=== PATIENT | female | born 1990 | race Hispanic/Latino ===

== ENCOUNTER 2017-03-17 05:18 | Emergency (ER) | payer BC ==
[2017-03-17 06:02] LABS: BASOPHILS % (AUTO) 0.8 % (0.0-5.0); EOSINOPHILS % (AUTO) 2.1 % (0.0-8.0); HEMATOCRIT 39.9 % (36-48); LYMPHOCYTES % (AUTO) 27.3 % (21.0-51.0); MEAN CORPUSCULAR HEMOGLOBIN 31.1 pg (27.0-33.0); MEAN CORPUSCULAR HGB CONC 34.8 g/dL (32.0-36.0); MEAN CORPUSCULAR VOLUME 89.3 fL (79-99); MONOCYTES % (AUTO) 5.4 % (3.0-13.0); NEUTROPHILS % (AUTO) 64.4 % (40.0-77.0); PLATELET COUNT (AUTO) 281 K/uL (130-400); RED BLOOD CELL COUNT(AUTO) 4.46 MIL/uL (4.00-5.50); RED CELL DISTRIBUTION WIDTH 13.5 % (11.0-15.5); WHITE BLOOD COUNT (AUTO) 12.9 K/uL (4.8-10.8)
[2017-03-17 06:10] LABS: CREATININE 0.7 mg/dL (0.5-1.5); POTASSIUM 3.9 mmol/L (3.5-5.1)
[2017-03-17 06:23] LABS: APPEARANCE,URINE Clear (CLEAR); BILIRUBIN,URINE Negative (NEGATIVE); COLOR,URINE Yellow (YELLOW); GLUCOSE, URINE (UA) Negative (NEGATIVE); KETONES,URINE Negative (NEGATIVE); LEUKOCYTE ESTERASE ,URINE Trace (NEGATIVE); NITRATE,URINE Negative (NEGATIVE); OCCULT BLOOD,URINE Large (NEGATIVE); PH,URINE 5.5 (5.0-8.0); PROTEIN,URINE Negative (NEGATIVE); UROBILINOGEN,URINE 0.2 mg/dL (0.2-1.0)
[2017-03-17 06:38] LABS: ALBUMIN 3.5 g/dL (3.5-5.0); BILIRUBIN,TOTAL 0.3 mg/dL (0.2-1.0); TOTAL PROTEIN, SERUM 6.9 g/dL (6.0-8.3)
[2017-03-17 07:19] LABS: BACTERIA,URINE Rare /HPF (None Seen); RBC,URINE 0-1 /HPF (0-1); WBC,URINE 0-1 /HPF (0-1)
== END 2017-03-17 08:05 | disposition home or self-care (01) ==
LOC: EDH 05:18
DX: O20.0 Threatened abortion (principal); Z90.49 Acquired absence of other specified parts of digestive tract; Z3A.00 Weeks of gestation of pregnancy not specified
CPT/HCPCS: 36415; 76817; 80053; 81001; 83033; 84702; 85025; 86900; 86901; 96372; 99285; J2791

== ENCOUNTER 2017-08-30 12:10 | Observation (INO) | payer BC ==
[~2017-08-30] VITALS: Ht 157.5 cm; Wt 112.9 kg
[2017-08-30] MEDS ORDERED: LACTATED RINGERS 1000ML 1,000 ML IV PRN (12:33)
[2017-08-30] MEDS ORDERED: LACTATED RINGERS 1000ML 1,000 ML IV SCH (13:30)
[2017-08-30] MEDS ORDERED: TERBUTALINE SULFATE VIAL 1MG/ML SQ SCH ×2 (13:30)
[2017-08-30 13:50] LABS: APPEARANCE,URINE Cloudy (CLEAR); BILIRUBIN,URINE Negative (NEGATIVE); COLOR,URINE Yellow (YELLOW); GLUCOSE, URINE (UA) Negative (NEGATIVE); KETONES,URINE 15 mg/dL (NEGATIVE); LEUKOCYTE ESTERASE ,URINE Large (NEGATIVE); NITRATE,URINE Negative (NEGATIVE); OCCULT BLOOD,URINE Negative (NEGATIVE); PH,URINE 5.5 (5.0-8.0); PROTEIN,URINE Negative (NEGATIVE); UROBILINOGEN,URINE 0.2 mg/dL (0.2-1.0)
[2017-08-30 14:17] LABS: RBC,URINE None Seen /HPF (0-1)
[2017-08-30 14:18] LABS: BACTERIA,URINE Moderate /HPF (None Seen)
== END 2017-08-30 15:00 | disposition home or self-care (01) ==
LOC: EDH 12:10 → LDH 12:11
PROVIDERS: ADMIT Obstetrics & Gynecology; ATTEND Obstetrics & Gynecology
DX: O60.03 Preterm labor without delivery, third trimester (principal); Z3A.30 30 weeks gestation of pregnancy
CPT/HCPCS: 81001; 96372; 99285; G0378 ×3; J3105; J7120; 96360; 96361

== ENCOUNTER 2023-04-15 10:42 | Emergency (ER) | payer BC, OTHER ==
[~2023-04-15] VITALS: Ht 157.5 cm; Wt 96.2 kg
[2023-04-15 11:21] LABS: HEMATOCRIT 37.1 % (36-48); MEAN CORPUSCULAR HEMOGLOBIN 30.6 pg (27.0-33.0); MEAN CORPUSCULAR HGB CONC 34.8 g/dL (32.0-36.0); MEAN CORPUSCULAR VOLUME 88.1 fL (79-99); RED BLOOD CELL COUNT(AUTO) 4.21 MIL/uL (4.00-5.50); RED CELL DISTRIBUTION WIDTH 13.2 % (11.0-15.5); WHITE BLOOD COUNT (AUTO) 8.9 K/uL (4.8-10.8)
[2023-04-15 11:33] LABS: CREATININE 0.6 mg/dL (0.5-1.5); POTASSIUM 3.9 mmol/L (3.5-5.1); PROTHROMBIN TIME 11.6 SEC (9.6-11.6)
[2023-04-15 11:34] LABS: PARTIAL THROMBOPLASTIN TIME 27.3 SEC (26.3-35.5)
[2023-04-15 15:30] VITALS: BP 97/57; PULSE 60; RESP 17; O2SAT 100
== END 2023-04-15 15:35 | disposition home or self-care (01) ==
LOC: EDH 10:42
DX: M79.89 Other specified soft tissue disorders (principal); M79.662 Pain in left lower leg; Z90.49 Acquired absence of other specified parts of digestive tract
CPT/HCPCS: 36415; 80048; 85027; 85610; 85730; 93970

== ENCOUNTER → 2023-07-23 | Outpatient (CLI) | payer OTHER | END | disposition home or self-care (01) | LOC: RAH 12:36 | PROVIDERS: ATTEND Student in an Organized Health Care Education/Training Program | DX: S42.132A Displaced fracture of coracoid process, left shoulder, initial encounter for closed fracture (principal); X58.XXXA Exposure to other specified factors, initial encounter; Y93.89 Activity, other specified; Y92.89 Other specified places as the place of occurrence of the external cause; Y99.8 Other external cause status | CPT/HCPCS: 73200 ==

== ENCOUNTER → 2023-08-16 | Outpatient (CLI) | payer OTHER | END | disposition home or self-care (01) | LOC: RAH 14:28 | PROVIDERS: ATTEND Student in an Organized Health Care Education/Training Program | DX: S83.282A Other tear of lateral meniscus, current injury, left knee, initial encounter (principal); S83.512A Sprain of anterior cruciate ligament of left knee, initial encounter; S83.522A Sprain of posterior cruciate ligament of left knee, initial encounter; M25.462 Effusion, left knee; X58.XXXA Exposure to other specified factors, initial encounter; Y93.89 Activity, other specified; Y92.89 Other specified places as the place of occurrence of the external cause; Y99.8 Other external cause status | CPT/HCPCS: 73721 ==